=== PATIENT | female | born 1995 | race Caucasian/White ===

== ENCOUNTER → 2017-08-26 | Outpatient (CLI) | payer OTHER ==
[2017-08-26 17:11] LABS: HCT 42.7 % (34.0-46.0); HGB 14.1 gm/dL (11.4-16.0); MCH 30.1 pg (25.0-35.0); MCV 91.2 fL (80.0-100.0); Mean Platelet Volume 7.9; Platelet Count 272 k/uL (150-450); RBC 4.68 m/uL (3.80-5.40); WBC 6.6 k/uL (3.8-10.6)
== END | disposition home or self-care (01) ==
LOC: LABPAT 16:26
PROVIDERS: ATTEND Obstetrics & Gynecology
DX: Z01.812 Encounter for preprocedural laboratory examination (principal)
CPT/HCPCS: 36415; 85027

== ENCOUNTER 2017-09-02 10:57 | Day surgery (SDC) | payer OTHER ==
[2017-08-30 12:20] VITALS: BMI 28.3
--- NOTE | 2017-09-02 08:11 | P.HPOB ---
History of Present Illness H&P Date: 09/02/17 Chief Complaint: irreg bleeding and cramping 22 year old G0 presents for D&C hysteroscopy. She has had some heavy periods with cramping along with dyspareunia. US showed an endocervical polyp. Review of Systems All systems: negative Constitutional: Denies chills, Denies fever Eyes: denies blurred vision, denies pain Ears, nose, mouth and throat: Denies headache, Denies sore throat Cardiovascular: Denies chest pain, Denies shortness of breath Respiratory: Denies cough Gastrointestinal: Denies abdominal pain, Denies diarrhea, Denies nausea, Denies vomiting Genitourinary: Denies dysuria, Denies hematuria Musculoskeletal: Denies myalgias Integumentary: Denies pruritus, Denies rash Neurological: Denies numbness, Denies weakness Psychiatric: Denies anxiety, Denies depression Endocrine: Denies fatigue, Denies weight change Past Medical History Past Medical History: No Reported History Additional Past Medical History / Comment(s): EXTREME CRAMPING, PAIN W/ MENSES; HEAVY ALSO History of Any Multi-Drug Resistant Organisms: None Reported Past Surgical History: No Surgical Hx Reported Past Anesthesia/Blood Transfusion Reactions: Family History of Problems w/ Anesthesia, Motion Sickness Additional Past Anesthesia/Blood Transfusion Reaction / Comment(s): MOTHER, GRANDMOTHER - "TAKES LONG TIME TO PUT UNDER ANESTHESIA." Smoking Status: Never smoker - Past Family History Father Additional Family Medical History / Comment(s): HX BLOOD CLOT, UNSURE OF TYPE Medications and Allergies Home Medications Medication Instructions Recorded Confirmed Type Bcp (Unsure Of Name) 1 tab PO HS 08/30/17 History Cetirizine HCl [Zyrtec] 10 mg PO DAILY 08/30/17 08/30/17 History Fluticasone Nasal [place] [Flonase 1 spr EA NOSTRIL BID 08/30/17 08/30/17 History Nasal [place]] Allergies Allergy/AdvReac Type Severity Reaction Status Date / Time erythromycin base Allergy Unknown Verified 08/30/17 11:59 Exam Osteopathic Statement: *. No significant issues noted on an osteopathic structural exam other than those noted in the History and Physical/Consult. HEart: RRR Lungs: CTAB Abdomen: soft, nontender Extremeties: neg cris's Assessment and Plan (1) Menorrhagia Status: Acute Code(s): N92.0 - EXCESSIVE AND FREQUENT MENSTRUATION WITH REGULAR CYCLE SNOMED Code(s): 418102090 (2) Dysmenorrhea Status: Acute Code(s): N94.6 - DYSMENORRHEA, UNSPECIFIED SNOMED Code(s): 041725549 (3) Endocervical polyp Status: Acute Code(s): N84.1 - POLYP OF CERVIX UTERI SNOMED Code(s): 0633314 Plan: 1. D&C hysteroscopy
[~2017-09-02 10:57] MED LIST: DEXAMETHASONE SOD PHOSPHATE 10 MG/ML 1 ML VIAL IV ONE; LACTATED RINGERS 1,000 ML IV SCH; MIDAZOLAM 2 MG/2 ML VIAL IV PRN; ONDANSETRON 4 MG/2 ML VIAL IVP ONE; Pre Op ABX Message 1 EACH MISC MISCELLANE ONE; SCOPOLAMINE 1.5MG/72HR PATCH TRANSDERM ONE
[2017-09-02 11:28] VITALS: TEMP 98.2
[2017-09-02] MEDS ORDERED: LIDOCAINE 1% 20 ML VIAL (10MG/ML) FOR IV START INTRADERMA ONE (11:40)
[2017-09-02] MEDS ORDERED: fentaNYL (PF) 50 MCG/ML 2 ML AMP ONE (11:58)
[2017-09-02] MEDS ORDERED: MIDAZOLAM 2 MG/2 ML VIAL ONE (11:58)
[2017-09-02] MEDS ORDERED: PROPOFOL 10 MG/ML 20 ML VIAL IV ONE (11:58)
[2017-09-02] MEDS ORDERED: LIDOCAINE 1% INJ 10MG/ML (20 ML MDV) ONE (11:58)
[2017-09-02] MEDS ORDERED: KETOROLAC 30 MG/ML 1 ML VIAL ONE (11:58)
--- NOTE | 2017-09-02 12:44 | P.OP ---
Date of Procedure: 09/02/17 Preoperative Diagnosis: 1. menorrhagia 2. dysmenorrhea 3. endocervical polyp Postoperative Diagnosis: same Procedure(s) Performed: D&C hysteroscopy Anesthesia: MAC Surgeon: Fatimah Paredes Estimated Blood Loss (ml): 10 IV fluids (ml): 500 Urine output (ml): 40 Pathology: other (endometrial currettings) Condition: stable Disposition: PACU Description of Procedure: Patient is taken the operating room where general anesthesia was obtained without difficulty. She is prepped and draped in normal sterile fashion dorsal lithotomy position, legs placed in the [employer] cane stirrups. Bladder was drained of all urine. Weighted speculum placed in the vagina the anterior lip of cervix was grasped With tenaculum. The uterus sounded to 7 cm and noted to be retroverted. Cervix is dilated to #8 Hegar dilator. Hysteroscopy was performed since the patient is on her period it is difficult to observe structures. Posterior are visualized however and there seems to be a smooth contour of the uterus. Sharp curet was used to obtain endometrial and endocervical curettings. All instruments removed from the vagina. Patient tolerated procedure well, sponge and instrument count correct 2. She was taken to recovery room in stable condition.
[2017-09-02] MEDS: fentaNYL (PF) 50 MCG/ML 2 ML AMP IV PRN ×2 (12:52→13:03)
[2017-09-02] MEDS ORDERED: LACTATED RINGERS 1,000 ML IV ONE (13:40)
[2017-09-02] MEDS ORDERED: HYDROcodone/APAP 5-325MG 1 EACH TAB PO ONE (14:13)
[2017-09-02 14:17] VITALS: RESP 18
[2017-09-02 14:19] VITALS: BP 110/70; PULSE 75
== END 2017-09-02 15:00 | disposition home or self-care (01) ==
LOC: OR 10:57
PROVIDERS: ATTEND Obstetrics & Gynecology
DX: N84.1 Polyp of cervix uteri (principal); N92.0 Excessive and frequent menstruation with regular cycle; N94.6 Dysmenorrhea, unspecified; Z79.3 Long term (current) use of hormonal contraceptives; Z79.51 Long term (current) use of inhaled steroids; Z79.899 Other long term (current) drug therapy; Z88.1 Allergy status to other antibiotic agents
CPT/HCPCS: 81025; 88305; 58558; J2250; J1100; J2405; J2001; J3010; J1885; J2704

== ENCOUNTER → 2019-12-06 | Outpatient (CLI) | payer OTHER ==
[2019-12-06 11:28] LABS: Basophils # (A) 0.1 k/uL (0-0.2); Basophils % (A) 1 %; Eosinophils # (A) 0.1 k/uL (0-0.7); Eosinophils % (A) 1 %; HCT 44.3 % (34.0-46.0); HGB 14.2 gm/dL (11.4-16.0); Lymphocytes # (A) 1.5 k/uL (1.0-4.8); Lymphocytes % (A) 34 %; MCHC 32.1 g/dL (31.0-37.0); MCV 93.2 fL (80.0-100.0); Mean Platelet Volume 7.5; Monocytes # (A) 0.2 k/uL (0-1.0); Monocytes % (A) 4 %; Neutrophils # (A) 2.6 k/uL (1.3-7.7); Neutrophils % (A) 57 %; Platelet Count 336 k/uL (150-450); RBC 4.75 m/uL (3.80-5.40); RDW 12.9 % (11.5-15.5); WBC 4.5 k/uL (3.8-10.6)
[2019-12-06 18:34] LABS: African American GFR (CKD) 138.6 (60.0-200.0); Albumin 4.6 g/dL (3.80-4.90); Albumin/Globulin Ratio 1.92 (1.60-3.17); Anion Gap 9.4 mmol/L (4.00-12.00); BUN/Creat Ratio 22.86 Ratio (12.00-20.00); C Reactive Protein 2.2 mg/dL (0.0-0.8); Calcium 9.9 mg/dL (8.7-10.3); Carbon Dioxide 25.6 mmol/L (21.6-31.8); Chol/HDL Ratio 2.71; Globulin 2.4 g/dL (1.6-3.3); LDL Cholesterol,Calculated 96.8 mg/dL (0.0-131.0); Non-African American GFR(CKD) 119.6 (60.0-200.0); Potassium 4.1 mmol/L (3.5-5.5); Total Bilirubin 0.5 mg/dL (0.3-1.2); VLDL Calculation 35.2 mg/dL (5.00-40.00)
[2019-12-06 19:36] LABS: Erythrocyte Sedimentation Rate 11 mm/Hr (0-20)
[2019-12-06 19:47] LABS: Hemoglobin A1C 4.9 % (4.0-6.0)
== END | disposition home or self-care (01) ==
LOC: LABWHC1 09:41
PROVIDERS: ATTEND Family Medicine
DX: Z00.00 Encounter for general adult medical examination without abnormal findings (principal)
CPT/HCPCS: 36415; 80053; 80061; 83036; 84443; 84681; 85025; 85652; 86140

== ENCOUNTER → 2020-01-01 | Outpatient (CLI) | payer OTHER | END | disposition home or self-care (01) | LOC: LABWHC1 11:24 | PROVIDERS: ATTEND Orthopaedic Surgery | DX: E55.9 Vitamin D deficiency, unspecified (principal) | CPT/HCPCS: 36415; 82306 ==

== ENCOUNTER 2020-10-16 22:28 | Emergency (ER) | payer BC, OTHER ==
[2020-10-16 22:32] VITALS: BP 116/70; PULSE 103
[2020-10-16 22:33] VITALS: TEMP 98
[2020-10-16] MEDS ORDERED: ONDANSETRON ODT 4 MG TAB PO STA (22:39)
[2020-10-16] MEDS ORDERED: IBUPROFEN 600 MG TAB PO STA (22:39)
[2020-10-16] MEDS ORDERED: MORPHINE SULFATE 4 MG/ML SYRINGE IM STA (22:39)
--- NOTE | 2020-10-16 23:16 | XR ---
EXAMINATION TYPE: XR ankle complete LT DATE OF EXAM: 10/16/2020 COMPARISON: NONE HISTORY: Pain TECHNIQUE: 3 view FINDINGS: There is soft tissue swelling over the lateral malleolus of the ankle. Ankle mortise is gisel tomic. I see no fracture. Joint spaces are normal. IMPRESSION: Soft tissue swelling. No fracture.
--- NOTE | 2020-10-16 23:17 | XR ---
EXAMINATION TYPE: XR tibia fibula LT DATE OF EXAM: 10/16/2020 COMPARISON: NONE HISTORY: Pain TECHNIQUE: 4 views FINDINGS: The knee joint is intact. Ankle mortise is anatomic. There is soft tissue swelling over the lateral malleolus of the ankle. There is no sign of knee joint effusion. IMPRESSION: Lateral soft tissue swelling at the ankle. No fracture seen.
--- NOTE | 2020-10-16 23:19 | ED ---
Lower Extremity Injury HPI - General Chief Complaint: Extremity Injury, Lower Stated Complaint: L Ankle Injury Time Seen by Provider: 10/16/20 22:34 Source: patient Mode of arrival: wheelchair - History of Present Illness Initial Comments: 25-year-old female patient presents to the emergency department today for evaluation of left ankle pain and swelling. Patient states about an hour prior to arrival she was coming down stairs when she tripped and landed wrong on her foot. States she is having significant swelling and pain to the left lateral aspect of the ankle. States she is having some tingling in her toes. Some discomfort up near her knee. She denies falling, hitting her head, or losing consciousness. Denies any other injuries or concerns. Has not taken anything for pain. Denies chance of . - Related Data Home Medications Medication Instructions Recorded Confirmed Bcp (Unsure Of Name) 1 tab PO HS 08/30/17 Cetirizine HCl [Zyrtec] 10 mg PO DAILY 08/30/17 08/30/17 Fluticasone Nasal [place] [Flonase 1 spr EA NOSTRIL BID 08/30/17 08/30/17 Nasal [place]] Previous Rx's Medication Instructions Recorded Ibuprofen [Motrin] 600 mg PO Q8HR PRN #30 tab 10/16/20 Allergies Allergy/AdvReac Type Severity Reaction Status Date / Time erythromycin base Allergy Unknown Verified 10/16/20 22:32 Review of Systems ROS Statement: Those systems with pertinent positive or pertinent negative responses have been documented in the HPI. ROS Other: All systems not noted in ROS Statement are negative. Past Medical History Past Medical History: No Reported History History of Any Multi-Drug Resistant Organisms: None Reported Past Surgical History: No Surgical Hx Reported Past Psychological History: No Psychological Hx Reported Smoking Status: Never smoker Past Alcohol Use History: None Reported Past Drug Use History: None Reported General Exam General appearance: alert, in no apparent distress, other (This is a well- developed, well-nourished adult female patient in no acute distress. Vital signs upon presentation are temperature 98.0F, pulse 103, respirations 21, blood pressure 116/70, pulse ox 97% on room air.) Respiratory exam: Present: normal lung sounds bilaterally. Absent: respiratory distress, wheezes, rales, rhonchi, stridor Cardiovascular Exam: Present: regular rate, normal rhythm, normal heart sounds. Absent: systolic murmur, diastolic murmur, rubs, gallop, clicks Extremities exam: Present: full ROM, normal capillary refill, other (Significant soft tissue swelling surrounding the left lateral malleolus. Skin is pink, warm, dry. Cap refill less than 3 seconds. Pedal and posttibial pulses are 2+ and equal bilaterally.). Absent: normal inspection, tenderness, pedal edema, joint swelling, calf tenderness Neurological exam: Present: alert, oriented X3, CN II-XII intact Psychiatric exam: Present: normal affect, normal mood Skin exam: Present: warm, dry, intact, normal color. Absent: rash Course Vital Signs 10/16/20 10/16/20 22:29 23:30 Temperature 98 F Pulse Rate 103 H Respiratory 21 18 Rate Blood Pressure 116/70 O2 Sat by Pulse 97 Oximetry Medical Decision Making - Medical Decision Making 25-year-old female patient presented to the emergency department today for evaluation of left ankle pain and swelling. Physical examination did reveal significant soft tissue swelling surrounding the left lateral malleolus. X-rays of the tib-fib and ankle were obtained and were negative for acute fracture. We did discuss pain as a cause for her symptoms. Discussed rest, ice, elevation she is given Kyaw wrap and ankle stirrup splint. She does have crutches in the car. She is instructed father primary care physician for recheck in 1 week if her symptoms are improved. Return parameters discussed in detail. She verbalizes understanding and agrees with this plan. My attending is Dr. Bellamy. - Radiology Data Radiology results: report reviewed, image reviewed Disposition Clinical Impression: Left ankle sprain Disposition: HOME SELF-CARE Condition: Good Instructions (If sedation given, give patient instructions): Ankle Sprain (ED) Additional Instructions: Use Kyaw wrap for compression and support. Air splint for alignment. Rest, ice, elevate the ankle. Take Tylenol Motrin for pain control. Follow-up with the primary care physician in one week ago her symptoms are not improved. Return to the emergency department for any new, worsening, or concerning symptoms. Prescriptions: Ibuprofen [Motrin] 600 mg PO Q8HR PRN #30 tab PRN Reason: Pain Is patient prescribed a controlled substance at d/c from ED?: No Referrals: Danny Dukes MD [Primary Care Provider] - 1-2 days Time of Disposition: 23:19
[2020-10-16] MEDS ORDERED: ACET/COD 300 MG/30 MG STARTER PACK 6 TAB BTL PO STA (23:25)
[2020-10-16 23:39] VITALS: RESP 18
== END 2020-10-16 23:30 | disposition home or self-care (01) ==
LOC: EC 22:28
DX: S93.402A Sprain of unspecified ligament of left ankle, initial encounter (principal); W10.9XXA Fall (on) (from) unspecified stairs and steps, initial encounter
CPT/HCPCS: 73590; 73610; 96372; 99283; 29515; J2270

== ENCOUNTER 2021-09-21 03:10 | Emergency (ER) | payer BC, OTHER ==
[2021-09-21 03:17] VITALS: BP 130/82; PULSE 87; RESP 18; TEMP 97.4
--- NOTE | 2021-09-21 03:24 | ED ---
Female Urogenital HPI - General Chief complaint: Abdominal Pain Stated complaint: 19 Weeks, Abdominal Pain and cramping Time Seen by Provider: 09/21/21 03:17 Source: patient, RN notes reviewed, old records reviewed Mode of arrival: ambulatory Limitations: no limitations - History of Present Illness Initial comments: This is a 26-year-old female to the emergency departmen for evaluation. She presents today for bowel pain and . Patient states she is 19 weeks' by formal ultrasound. Patient is having left-sided abdominal pain Rating from her groin up into her left flank. Patient's pain is crampy in nature woke her from sleep a few hours ago and has been persistent. She has no nausea or vomiting. No recent fevers normal bowel movement yesterday and no dysuria. MD Complaint: pelvic pain -: hour(s) Location: LLQ Radiation: LLQ Severity: mild Severity scale (1-10): 2 Quality: cramping Consistency: intermittent Improves with: none Worsens with: none Last Menstrual Period: 05/10/21 Patient : Yes Associated Symptoms: abdominal pain - Related Data Sexually active: No Home Medications Medication Instructions Recorded Confirmed Bcp (Unsure Of Name) 1 tab PO HS 08/30/17 Cetirizine HCl [Zyrtec] 10 mg PO DAILY 08/30/17 08/30/17 Fluticasone Nasal [place] [Flonase 1 spr EA NOSTRIL BID 08/30/17 08/30/17 Nasal [place]] Previous Rx's Medication Instructions Recorded Ibuprofen [Motrin] 600 mg PO Q8HR PRN #30 tab 10/16/20 Allergies Allergy/AdvReac Type Severity Reaction Status Date / Time erythromycin base Allergy Unknown Verified 09/21/21 03:17 Review of Systems ROS Statement: Those systems with pertinent positive or pertinent negative responses have been documented in the HPI. ROS Other: All systems not noted in ROS Statement are negative. Past Medical History Past Medical History: No Reported History History of Any Multi-Drug Resistant Organisms: None Reported Past Surgical History: No Surgical Hx Reported Additional Past Surgical History / Comment(s): left arm. d and c for polyps Past Psychological History: No Psychological Hx Reported Smoking Status: Never smoker Past Alcohol Use History: None Reported Past Drug Use History: None Reported General Exam General appearance: alert, in no apparent distress Head exam: Present: atraumatic, normocephalic, normal inspection Eye exam: Present: normal appearance, PERRL, EOMI. Absent: scleral icterus, conjunctival injection, periorbital swelling ENT exam: Present: normal exam, mucous membranes moist Neck exam: Present: normal inspection. Absent: tenderness, meningismus, lymphadenopathy Respiratory exam: Present: normal lung sounds bilaterally. Absent: respiratory distress, wheezes, rales, rhonchi, stridor Cardiovascular Exam: Present: regular rate, normal rhythm, normal heart sounds. Absent: systolic murmur, diastolic murmur, rubs, gallop, clicks GI/Abdominal exam: Present: soft, normal bowel sounds. Absent: distended, tenderness, guarding, rebound, rigid Extremities exam: Present: normal inspection, full ROM, normal capillary refill. Absent: tenderness, pedal edema, joint swelling, calf tenderness Back exam: Present: normal inspection Neurological exam: Present: alert, oriented X3, CN II-XII intact Psychiatric exam: Present: normal affect, normal mood Skin exam: Present: warm, dry, intact, normal color. Absent: rash Course Vital Signs 09/21/21 03:11 Temperature 97.4 F L Pulse Rate 87 Respiratory 18 Rate Blood Pressure 130/82 O2 Sat by Pulse 97 Oximetry - Reevaluation(s) Reevaluation #1: 09/21/21 03:45 Medical record is reviewed Reevaluation #2: 09/21/21 03:45 Patient has no real change in symptoms here in the ER Reevaluation #3: 09/21/21 03:59 Patient informed of results and questions answered Medical Decision Making - Medical Decision Making 26 female to the emergency department with nonspecific abdominal pain. Will take a [id number] approach. Urinalysis negative for acute disease. Patient is positive heart tones. Patient can be discharged home - Lab Data Lab Results 09/21/21 Range/Units 03:29 Urine Color Light Yellow Urine Appearance Clear (Clear) Urine pH 6.5 (5.0-8.0) Ur Specific [place] 1.012 (1.001-1.035) Urine Protein Negative (Negative) Urine Glucose (UA) Negative (Negative) Urine Ketones Negative (Negative) Urine Blood Negative (Negative) Urine Nitrite Negative (Negative) Urine Bilirubin Negative (Negative) Urine Urobilinogen <2.0 (<2.0) mg/dL Ur Leukocyte Esterase Negative (Negative) Disposition Clinical Impression: Abdominal pain Disposition: HOME SELF-CARE Condition: Good Instructions (If sedation given, give patient instructions): Abdominal Pain in (ED) Is patient prescribed a controlled substance at d/c from ED?: No Referrals: Danny Dukes MD [Primary Care Provider] - 1-2 days Time of Disposition: 03:55
[2021-09-21] MEDS ORDERED: ACETAMINOPHEN TAB 500 MG TAB PO STA (03:40)
[2021-09-21 03:53] LABS: Appearance,Urine Clear (Clear); Bilirubin,Urine Negative (Negative); Blood,Urine Negative (Negative); Color,Urine Light Yellow; Glucose,Urine (UA) Negative (Negative); Ketones,Urine Negative (Negative); Leukocyte Esterase,Urine Negative (Negative); Nitrite,Urine Negative (Negative); PH, Urine 6.5 (5.0-8.0); Protein,Urine Negative (Negative); Specific Gravity,Urine 1.012 (1.001-1.035); Urobilinogen,Urine <2.0 mg/dL (<2.0)
== END 2021-09-21 04:04 | disposition home or self-care (01) ==
LOC: EC 03:10
DX: O26.892 Other specified pregnancy related conditions, second trimester (principal); R10.9 Unspecified abdominal pain; Z88.1 Allergy status to other antibiotic agents; Z3A.19 19 weeks gestation of pregnancy
CPT/HCPCS: 81003

== ENCOUNTER → 2021-12-11 | Outpatient (CLI) | payer BC, OTHER | END | disposition home or self-care (01) | LOC: LABWHC1 09:23 | PROVIDERS: ATTEND Obstetrics & Gynecology | DX: Z36.9 Encounter for antenatal screening, unspecified (principal) | CPT/HCPCS: 36415; 82950; 86850; 86870; 86880 ==

== ENCOUNTER 2021-12-15 11:13 | Outpatient (CLI) | payer BC, OTHER ==
[2021-12-15 11:33] LABS: Glucose,Whole Blood 126 mg/dL (70-110)
[2021-12-15 12:23] LABS: Appearance,Urine Cloudy (Clear); Bacteria,Urine Occasional /hpf; Bilirubin,Urine Negative (Negative); Blood,Urine Negative (Negative); Color,Urine Yellow; Glucose,Urine (UA) Negative (Negative); Ketones,Urine Negative (Negative); Leukocyte Esterase,Urine Trace (Negative); Mucus,Urine Occasional /hpf; Nitrite,Urine Negative (Negative); PH, Urine 6.5 (5.0-8.0); Protein,Urine 1+ (Negative); RBC,Urine 3 /hpf (0-5); Specific Gravity,Urine 1.024 (1.001-1.035); Squamous Epithelial Cell,Urine 15 /hpf (0-4); Urobilinogen,Urine <2.0 mg/dL (<2.0); WBC,Urine 11 /hpf (0-5)
[2021-12-15] MEDS ORDERED: ONDANSETRON 4 MG TAB PO PRN (12:27)
[2021-12-15 12:39] VITALS: BP 120/76; PULSE 95; RESP 16; TEMP 97.9
--- NOTE | 2021-12-31 20:12 | P.MSEPDOC ---
Presenting Problems - Arrival Data Date of Arrival on Unit: 12/15/21 Time of Arrival on Unit: 11:13 Mode of Transport: Ambulatory - Complaint OB-Reason for Admission/Chief Complaint: Acute Nausea/Vomiting Medical History - Information : 1 Para: 0 Term: 0 : 0 Abortions: Spontaneous or Elective: 0 Number of Living Children: 0 - Gestational Age Gestational Age by CONCHA (wks/days): 31 Weeks and 2 Days Review of Systems - Review of Systems Constitutional: No problems Breast: No problems ENT: No problems Cardiovascular: No problems Respiratory: No problems Gastrointestinal: No problems Genitourinary: No problems Musculoskeletal: No problems Neurological: No problems Skin: No problems Vital Signs - Temperature Temperature: 97.9 F Temperature Source: Temporal Artery Scan - Pulse Right Sitting Pulse Rate: 95 Pulse Assessment Method: Automatic Cuff - Respirations Respiratory Rate: 16 Oxygen Delivery Method: Room Air - Blood Pressure Right Arm Blood Pressure: 120/76 Blood Pressure Mean: 90 Blood Pressure Source: Automatic Cuff Medical Screen Scoring - Assessment - Baby A Baseline FHR: 145 Heart Rate - NICHD Category: Category I (Normal) NST: Reactive Physician Notification - Physician Notified Physician Notified Date: 12/15/21 Physician Notified Time: 14:01 Physician: Nilsa Moon New Order Received: Yes (d/c home) Maternal Triage Index - Non-Urgent/Priority 4 Non-Urgent Priority 4: Yes Criteria Met for Priority 4: nausea, vomiting, abd pain and cramping x 3 days Disposition - Disposition OB Disposition: Discharge to home Discharge Date: 12/15/21 Discharge Time: 14:07 I agree with the RN Medical Screening Exam: Yes Physician's MSE Comment: I have neither seen nor examined the patient. Case reviewed; plan agreed upon as documented in EMR&OBIX.: Yes Diagnosis: RELATED CONDITIONS, UNSPECIFIED, THIRD TRIMESTER
== END 2021-12-15 14:07 | disposition home or self-care (01) ==
LOC: FBPOP 11:13
PROVIDERS: ATTEND Obstetrics & Gynecology
DX: O21.2 Late vomiting of pregnancy (principal); Z3A.31 31 weeks gestation of pregnancy; Z88.1 Allergy status to other antibiotic agents
CPT/HCPCS: 59025; 81001; 99213

== ENCOUNTER 2022-02-11 19:44 | Inpatient (IN) | payer BC, OTHER ==
[2022-02-11] MEDS ORDERED: OXYTOCIN 10 UNIT/ML 1 ML VIAL IM PRN (20:24)
[2022-02-11] MEDS ORDERED: LIDOCAINE 0.5% (PF) 5 MG/ML (50 ML SDV) SQ PRN (20:24)
[2022-02-11] MEDS ORDERED: TERBUTALINE 1 MG/ML VIAL SQ PRN (20:24)
[2022-02-11] MEDS ORDERED: CARBOPROST TROMETHAMINE 250 MCG/ML 1 ML AMP IM PRN (20:24)
[2022-02-11] MEDS ORDERED: METHYLERGONOVINE 0.2 MG/ML 1 ML AMP IM PRN (20:24)
[2022-02-11] MEDS: LACTATED RINGERS 1,000 ML IV SCH ×2 (20:42→22:27)
--- NOTE | 2022-02-11 20:51 | P.HPOB ---
History of Present Illness H&P Date: 02/11/22 Chief Complaint: Spontaneous rupture of membranes at 39-4/7 weeks This is a 26-year-old 1 para 0 woman with an estimated due date of 02/14/2022 who presents at 39-4/7 weeks' gestation with spontaneous rupture of membranes. She reports increasing contraction activity throughout the last several hours and then had a gush of fluid had approximately 6 PM. She presented to labor and delivery triage at which time gross rupture of membranes was confirmed and she had a positive amnio sure test. The fluid was noted to be thick meconium stained. She is 1 cm dilated and is irregularly fernanda. She's had an uncomplicated otherwise. Laboratory data: Blood type O-, antibody screen negative, rubella immune, VDRL nonreactive, hepatitis B surface antigen negative, gonorrhea and clinically cultures negative, HIV negative, glucose tolerance testing 3 hour within normal limits, group B strep negative. Review of Systems All systems: negative Past Medical History Past Medical History: No Reported History History of Any Multi-Drug Resistant Organisms: None Reported Past Surgical History: No Surgical Hx Reported Additional Past Surgical History / Comment(s): left arm. d and c for polyps Smoking Status: Never smoker Medications and Allergies Home Medications Medication Instructions Recorded Confirmed Type Esomeprazole Magnesium [NexIUM] 1 tab PO DAILY 12/15/21 12/15/21 History Vit No.179/Iron/Folic 1 tab PO DAILY 12/15/21 12/15/21 History [ Tablet] Allergies Allergy/AdvReac Type Severity Reaction Status Date / Time erythromycin base Allergy Unknown Verified 12/15/21 11:48 Exam Intake and Output 02/11/22 02/11/22 02/11/22 06:59 14:59 22:59 Other: Weight 98.883 kg This is a visibly gravid comfortable appearing female. Targeted physical exam is performed. Cervix is 1 cm dilated 50% effaced and the vertex in the -3 station. Thick meconium-stained fluid is noted. heart tones are currently category 1 with positive accelerations. There is evidence of 2 or 3 variable appearing heart rate decelerations however no repetitive late appearing decelerations. She is fernanda very irregularly. Assessment and Plan (1) 39 weeks gestation of Current Visit: Yes Status: Acute Code(s): Z3A.39 - 39 WEEKS GESTATION OF SNOMED Code(s): 82567837 (2) Spontaneous rupture of membranes Current Visit: Yes Status: Acute Code(s): AMO0922 - SNOMED Code(s): 533362953 (3) Spontaneous onset of labor Current Visit: Yes Status: Acute Code(s): UCB7270 - SNOMED Code(s): 26307174 (4) Meconium in amniotic fluid Current Visit: Yes Status: Acute Code(s): P96.83 - MECONIUM STAINING SNOMED Code(s): 4799568 (5) Rh negative, maternal Current Visit: Yes Status: Acute Code(s): O26.899 - OTH RELATED CONDITIONS, UNSPECIFIED TRIMESTER; Z67.91 - UNSPECIFIED BLOOD TYPE, RH NEGATIVE SNOMED Code(s): 821776387 Plan: 26-year-old 1 para 0 woman at 39-4/7 weeks' gestation with spontaneous rupture of membranes in early active labor. Meconium-stained fluid is noted. This findings discussed with the patient and her in close monitoring will be undertaken. Pitocin augmentation as indicated for labor. She may have an epidural anesthetic in active labor. heart tones are currently category 1.
[2022-02-11 21:08] LABS: Basophils # (A) 0.1 k/uL (0-0.2); Basophils % (A) 0 %; Eosinophils % (A) 0 %; HCT 41.2 % (34.0-46.0); HGB 14.6 gm/dL (11.4-16.0); Lymphocytes % (A) 15 %; MCH 31.9 pg (25.0-35.0); MCHC 35.5 g/dL (31.0-37.0); MCV 89.8 fL (80.0-100.0); Mean Platelet Volume 9.3; Monocytes # (A) 0.5 k/uL (0-1.0); Monocytes % (A) 4 %; Neutrophils # (A) 10.3 k/uL (1.3-7.7); Neutrophils % (A) 78 %; Platelet Count 219 k/uL (150-450); RBC 4.59 m/uL (3.80-5.40); RDW 13.2 % (11.5-15.5); WBC 13.1 k/uL (3.8-10.6)
[2022-02-11] MEDS ORDERED: fentaNYL (PF) 50 MCG/ML 5 ML AMP ONE (21:39)
[2022-02-11] MEDS ORDERED: SODIUM CHLORIDE 0.9% 100 ML BAG ONE (21:39)
[2022-02-11] MEDS ORDERED: ROPIVACAINE 5 MG/ML 20 ML AMPULE ONE (21:39)
[2022-02-12] MEDS ORDERED: BUTORPHANOL 1 MG/ML 1 ML VIAL IV PRN (00:03)
[2022-02-12] MEDS ORDERED: BENZOCAINE/MENTHOL SPRAY 1 GM/SPRAY AEROSOL TOPICAL PRN (01:36)
[2022-02-12] MEDS ORDERED: HYDROCORTISONE 2.5% RECTAL CREAM 30 GM TUBE RECTAL PRN (01:36)
[2022-02-12] MEDS ORDERED: LANOLIN CREAM 5 GM TUBE TOPICAL PRN (01:36)
[2022-02-12] MEDS ORDERED: diphenhydrAMINE 25 MG CAP PO PRN (01:36)
[2022-02-12] MEDS ORDERED: SIMETHICONE 80 MG CHEWABLE PO PRN (01:36)
[2022-02-12] MEDS ORDERED: diphenhydrAMINE 50 MG/ML 1 ML VIAL IVP PRN ×2 (01:36)
[2022-02-12] MEDS ORDERED: ZOLPIDEM 5 MG TAB PO PRN (01:36)
[2022-02-12] MEDS ORDERED: diphenhydrAMINE 50 MG CAP PO PRN (01:36)
--- NOTE | 2022-02-12 01:36 | P.PROBDLV ---
Vaginal Delivery Note - . Vaginal Delivery Note: Findings: Female in the left occiput anterior position with nuchal cord 1. Apgars of 9 at 1 minute and 9 at 5 minutes weighing 6 lbs. 13 oz., 3110 g. Second-degree midline episiotomy. Calcified and disrupted placenta with meconium staining noted. Three-vessel cord. EBL 350 mL's. Delivery summary: This is a 26-year-old 1 para 0 woman who presented at 39-4/7 weeks' gestation with spontaneous rupture of membranes and early active labor. She was found to have thick meconium-stained fluid. When she presented she was 1 cm dilated however, actively fernanda every 1-3 minutes. She progressed to 2 cm dilated and was significantly uncomfortable therefore an epidural anesthetic was placed. She did not obtain adequate pain control however did have a root have a rapid progression to complete cervical dilation after a 6 hour first stage of labor. She reached complete cervical dilation and commenced pushing with strong maternal effort. She did push to and had a very tight perineum. This was infused with lidocaine and a midline episiotomy was delivered. With additional maternal effort and support of the perineum the head did deliver with the next contraction. The rest of the delivered rapidly onto the field. There was thick meconium stained fluid noted terminally. The nose and mouth were bulb suctioned. There was a nuchal cord that was delivered through. The infant was placed on the maternal abdomen and eventually the cord was clamped and cut. Apgars were 9 at 1 minute and 9 at 5 minutes and weight was 6 lbs. 13 oz. She had an approximately 20 minute third stage of labor at which time calcified and meconium-stained placenta was expressed. Inspection revealed an area with possible disruption of the cotyledon. By manual exploration of the low uterine segment did not reveal any retained placenta and the uterus was firm. She did receive Pitocin following the third stage of labor. On well awaiting the placental delivery the second degree perineal laceration had been infused with lidocaine and repaired with 3-0 Vicryl suture in the usual fashion. The vagina and cervix were reinspected and no further lacerations were noted. EBL was approximately 350 mL's for the entire event. Both mother and were rest resting comfortably post delivery in the room.
[2022-02-12] MEDS ORDERED: OXYTOCIN 30 UNITS/500 ML NS 30 UNIT in SALINE 1 500ML.BAG IV SCH (01:45)
[2022-02-12] MEDS: IBUPROFEN 600 MG TAB PO PRN ×4 (02:05→20:48)
[2022-02-12] MEDS: SENNOSIDES-DOCUSATE SODIUM 1 EACH TAB PO SCH ×2 (09:23→20:48)
[2022-02-12] MEDS: ACETAMINOPHEN TAB 325 MG TAB PO PRN (12:42)
[2022-02-12] MEDS: LACTATED RINGERS 1,000 ML IV SCH ×2 (21:00→22:22)
[2022-02-13 07:44] LABS: Basophils # (A) 0.1 k/uL (0-0.2); Basophils % (A) 0 %; Eosinophils # (A) 0.1 k/uL (0-0.7); Eosinophils % (A) 1 %; HCT 37.3 % (34.0-46.0); HGB 12.7 gm/dL (11.4-16.0); Lymphocytes % (A) 22 %; MCH 32.1 pg (25.0-35.0); MCHC 34.2 g/dL (31.0-37.0); Mean Platelet Volume 9.4; Monocytes # (A) 0.5 k/uL (0-1.0); Monocytes % (A) 4 %; Neutrophils # (A) 9.8 k/uL (1.3-7.7); Neutrophils % (A) 72 %; Platelet Count 205 k/uL (150-450); RBC 3.97 m/uL (3.80-5.40); RDW 13.2 % (11.5-15.5); WBC 13.6 k/uL (3.8-10.6)
[2022-02-13] MEDS: SENNOSIDES-DOCUSATE SODIUM 1 EACH TAB PO SCH ×2 (08:25→20:24)
[2022-02-13] MEDS: IBUPROFEN 600 MG TAB PO PRN ×2 (08:25→16:28)
[2022-02-13] MEDS: ACETAMINOPHEN TAB 325 MG TAB PO PRN ×2 (11:47→20:25)
--- NOTE | 2022-02-13 12:11 | P.PNOBGVD ---
Subjective - Subjective Principal diagnosis: day #1 status post normal spontaneous vaginal delivery Interval history: Patient is doing well . She is ambulating and voiding without difficulty. She is tolerating a regular diet without nausea or vomiting. Her is under bili lights currently Patient reports: Reports appetite normal, Reports voiding normally, Reports pain well controlled, Reports ambulating normally : doing well Objective - Latest Vital Signs Latest vital signs: Vital Signs Temp Pulse Pulse Resp BP Pulse Ox 02/13/22 08:00 98.3 F 97 16 135/89 02/13/22 00:00 97.9 F 85 16 127/85 97 02/12/22 20:00 97.9 F 87 16 127/85 97 02/12/22 16:00 97.7 F 93 16 113/71 Intake and Output 02/12/22 02/13/22 02/13/22 22:59 06:59 14:59 Other: # Voids 2 2 2 - Exam Extremities: Present: normal, edema Abdomen: Present: normal appearance Uterus: Present: normal, firm - Labs Labs: Abnormal Lab Results - Last 24 Hours (Table) 02/13/22 Range/Units 06:13 WBC 13.6 H (3.8-10.6) k/uL Neutrophils # 9.8 H (1.3-7.7) k/uL Assessment and Plan (1) Status post normal vaginal delivery Current Visit: Yes Status: Acute Code(s): [id number] - SNOMED Code(s): 186446900 (2) 39 weeks gestation of Current Visit: Yes Status: Acute Code(s): Z3A.39 - 39 WEEKS GESTATION OF SNOMED Code(s): 38283730 (3) Meconium in amniotic fluid Current Visit: Yes Status: Acute Code(s): P96.83 - MECONIUM STAINING SNOMED Code(s): 8772435 (4) Rh negative, maternal Current Visit: Yes Status: Acute Code(s): O26.899 - OTH RELATED CONDITIONS, UNSPECIFIED TRIMESTER; Z67.91 - UNSPECIFIED BLOOD TYPE, RH NEGATIVE SNOMED Code(s): 201718602 (5) Spontaneous onset of labor Current Visit: Yes Status: Acute Code(s): KGV8532 - SNOMED Code(s): 30907648 (6) Spontaneous rupture of membranes Current Visit: Yes Status: Acute Code(s): HCU5563 - SNOMED Code(s): 471020436 Plan: 26-year-old status post normal spontaneous vaginal delivery. Patient is doing well . Plan to continue routine care and anticipate discharge home tomorrow with .
[2022-02-14] MEDS: IBUPROFEN 600 MG TAB PO PRN ×3 (00:33→16:46)
[2022-02-14] MEDS: ACETAMINOPHEN TAB 325 MG TAB PO PRN (05:19)
[2022-02-14] MEDS: SENNOSIDES-DOCUSATE SODIUM 1 EACH TAB PO SCH (09:31)
--- NOTE | 2022-02-14 10:05 | P.DS ---
Providers Date of admission: 02/11/22 20:01 Expected date of discharge: 02/14/22 Attending physician: Lobo Ramirez Primary care physician: Stated None - Discharge Diagnosis(es) (1) Status post normal vaginal delivery Current Visit: Yes Status: Acute (2) 39 weeks gestation of Current Visit: Yes Status: Acute (3) Meconium in amniotic fluid Current Visit: Yes Status: Acute (4) Rh negative, maternal Current Visit: Yes Status: Acute (5) Spontaneous onset of labor Current Visit: Yes Status: Acute (6) Spontaneous rupture of membranes Current Visit: Yes Status: Acute Hospital Course: This is a 18-year-old G1 now P1 presented to labor and delivery at 39-4/7 weeks with spontaneous rupture of membranes in early active labor. Patient had been receiving routine care for full details on this patient please see the dictated history and physical. Patient was noted to have thick meconium-stained fluid upon presentation and 1 cm. Patient made slow progress but was significantly uncomfortable therefore epidural was placed when she was 2 cm. Patient then had rapid progression to complete dilation after a six-hour first stage of labor. Patient reached complete cervical dilation and began pushing. She had a normal spent taste vaginal delivery of a viable female infant weight 6 lbs. 13 oz., she did have a second-degree vaginal laceration repaired in usual fashion with 3-0 Vicryl. patient's course has been uneventful. On this day #2 she is ambulating and voiding without difficulty. She is tolerating a regular diet without nausea or vomiting. She states her pain is well-controlled. Discharge instructions are reviewed. Patient Condition at Discharge: Good Plan - Discharge Summary New Discharge Prescriptions: No Action Esomeprazole Magnesium [NexIUM] 1 tab PO DAILY Vit No.179/Iron/Folic [ Tablet] 1 tab PO DAILY Discharge Medication List Esomeprazole Magnesium [NexIUM] 1 tab PO DAILY 12/15/21 [History] Vit No.179/Iron/Folic [ Tablet] 1 tab PO DAILY 12/15/21 [History] Follow up Appointment(s)/Referral(s): Lobo Ramirez MD [STAFF PHYSICIAN] - 6 Weeks Patient Instructions/Handouts: Vaginal Delivery (DC), Vaginal Delivery (GEN) Activity/Diet/Wound Care/Special Instructions: Patient is counseled nothing in the vagina, no intercourse or tub baths until 6 weeks . She is counseled on [id number] pain control, ibuprofen 6 her milligrams as needed for pain. Should she have any concerns prior to her 6 week check she is urged to call the office. Discharge Disposition: HOME SELF-CARE
[2022-02-14 17:15] VITALS: BP 141/87; PULSE 80; RESP 18; TEMP 98.3
== END 2022-02-14 19:35 | disposition home or self-care (01) | DRG 807 ==
LOC: FBPOP 19:44 → 4FBP 20:01
PROVIDERS: ADMIT Obstetrics & Gynecology; ATTEND Obstetrics & Gynecology
PROC: 10E0XZZ Delivery of Products of Conception, External Approach (ICD-10-PCS; principal; 2022-02-12)
PROC: 0KQM0ZZ Repair Perineum Muscle, Open Approach (ICD-10-PCS; 2022-02-12)
PROC: 4A0HXCZ Measurement of Products of Conception, Cardiac Rate, External Approach (ICD-10-PCS; 2022-02-12)
PROC: 3E033VJ Introduction of Other Hormone into Peripheral Vein, Percutaneous Approach (ICD-10-PCS; 2022-02-12)
DX: O42.92 Full-term premature rupture of membranes, unspecified as to length of time between rupture and onset of labor (principal); Z37.0 Single live birth; O70.1 Second degree perineal laceration during delivery; O76 Abnormality in fetal heart rate and rhythm complicating labor and delivery; O26.893 Other specified pregnancy related conditions, third trimester; O69.81X0 Labor and delivery complicated by cord around neck, without compression, not applicable or unspecified; O77.0 Labor and delivery complicated by meconium in amniotic fluid; Z3A.39 39 weeks gestation of pregnancy; Z88.1 Allergy status to other antibiotic agents; Z67.41 Type O blood, Rh negative
CPT/HCPCS: 59025; 84112; 85025; 86850; 86900; 86901; 99213

== ENCOUNTER 2023-09-16 17:58 | Emergency (ER) | payer BC, OTHER ==
--- NOTE | 2023-09-16 18:55 | ED ---
Abdominal Pain HPI - General Source: patient, RN notes reviewed Mode of arrival: ambulatory Limitations: no limitations <Jenny Crowley - Last Filed: 09/16/23 18:53> <Ted Parry - Last Filed: 09/17/23 04:20> - General Chief Complaint: Abdominal Pain Stated Complaint: complications Time Seen by Provider: 09/16/23 18:53 - History of Present Illness Initial Comments: Quick [id number] female at approximately 5 weeks gestation presenting to the ER with pelvic pain radiating to the back. She states she was sent by urgent care due to concerns for possible ectopic or ruptured ovarian c yst. Denies vaginal bleeding. (Jenny Crowley) 28-year-old female presenting with chief complaint of pelvic pain. Patient had a positive at-home test, LMP was around 4/15. She states that she was feeling some pain in her back on the left side and some comfort in the right- sided pelvic region. She assumed that she was getting a UTI so she went to urgent care. They prompted her to report to the ER to rule out ectopic . She is having no vaginal bleeding. Her pain is mild. She is having no dysuria, hematuria, urgency, frequency, fevers. No nausea or vomiting. No diarrhea. (Ted Parry) - Related Data Home Medications Medication Instructions Recorded Confirmed Esomeprazole Magnesium [NexIUM] 1 tab PO DAILY 12/15/21 02/12/22 Vit No.179/Iron/Folic 1 tab PO DAILY 12/15/21 02/12/22 [ Tablet] Allergies Allergy/AdvReac Type Severity Reaction Status Date / Time erythromycin base Allergy Unknown Verified 09/16/23 18:27 Review of Systems ROS Other: All systems not noted in ROS Statement are negative. <Jenny Crowley - Last Filed: 09/16/23 18:53> ROS Other: All systems not noted in ROS Statement are negative. <Ted Parry - Last Filed: 09/17/23 04:20> ROS Statement: Those systems with pertinent positive or pertinent negative responses have been documented in the HPI. Past Medical History Past Medical History: No Reported History History of Any Multi-Drug Resistant Organisms: None Reported Past Surgical History: No Surgical Hx Reported Additional Past Surgical History / Comment(s): left arm. d and c for polyps Past Psychological History: No Psychological Hx Reported Smoking Status: Vaper Past Alcohol Use History: Occasional Past Drug Use History: None Reported <Jenny Crowley - Last Filed: 09/16/23 18:53> General Exam Limitations: no limitations <Jenny Crowley - Last Filed: 09/16/23 18:53> Limitations: no limitations General appearance: alert, in no apparent distress Head exam: Present: atraumatic, normocephalic Eye exam: Present: normal appearance, EOMI Neck exam: Present: normal inspection Respiratory exam: Absent: respiratory distress Cardiovascular Exam: Present: regular rate GI/Abdominal exam: Absent: distended Neurological exam: Present: alert, oriented X3 Psychiatric exam: Present: normal affect, normal mood Skin exam: Present: normal color <Ted Parry - Last Filed: 09/17/23 04:20> - General Exam Comments Initial Comments: Visual Physical Exam Vital signs reviewed General: Well-appearing, nontoxic, no acute distress. Head: Normocephalic, atraumatic Eyes: PERRLA, EOMI ENT: Airway patent Chest: Nonlabored breathing Skin: No visual rash, normal skin tone Neuro: Alert and oriented 3 Musculoskeletal: No gross abnormalities (Jenny Crowley) Course Vital Signs 09/16/23 09/16/23 09/16/23 18:23 22:29 23:57 Temperature 98.4 F 98.5 F Pulse Rate 90 59 L 76 Respiratory 18 17 18 Rate Blood Pressure 117/69 118/87 117/98 O2 Sat by Pulse 97 98 97 Oximetry Medical Decision Making <Jenny Crowley - Last Filed: 09/16/23 18:53> - Lab Data Result diagrams: 09/16/23 18:51 09/16/23 18:51 <Ted Parry - Last Filed: 09/17/23 04:20> - Medical Decision Making I completed the quick note portion of this chart signed Jenny Crowley PA-C (Jenny Crowley) Was pt. sent in by a medical professional or institution (ISHAN Valdez, GEOLOGY PROFESSOR, urgent care, hospital, or group home...) When possible be specific @ -No Did you speak to anyone other than the patient for history (EMS, parent, family, police, friend...)? What history was obtained from this source @ -No Did you review nursing and triage notes (agree or disagree)? Why? @ -I reviewed and agree with nursing and triage notes Were old charts reviewed (outside hosp., previous admission, EMS record, old EKG, old radiological studies, urgent care reports/EKG's, group home records)? Report findings @ -No old charts were reviewed Differential Diagnosis (chest pain, altered mental status, abdominal pain women, abdominal pain men, vaginal bleeding, weakness, fever, dyspnea, syncope, headache, dizziness, GI bleed, back pain, seizure, CVA, palpatations, mental health, musculoskeletal)? @ -Differential includes UTI, kidney stone, pyelonephritis, ectopic , ovarian cyst, this is not an all-inclusive list EKG interpreted by me (3pts min.). @ -As above X-rays interpreted by me (1pt min.). @ -None done CT interpreted by me (1pt min.). @ -None done U/S interpreted by me (1pt. min.). @ -Ultrasound shows no evidence of intrauterine gestational sac, correlate with beta-hCG. If positive this could represent early , ectopic , or spontaneous . Follow-up pelvic ultrasound in 5 to 7 days and serial beta hCG studies have recommended What testing was considered but not performed or refused? (CT, X-rays, U/S, labs)? Why? @ -None What meds were considered but not given or refused? Why? @ -None Did you discuss the management of the patient with other professionals (professionals i.e. , PA, GEOLOGY PROFESSOR, lab, RT, psych nurse, mental health social worker, fire crew specialist, teacher, sustainability officer, case making machine operator)? Give summary @ -No Was smoking cessation discussed for >3mins.? @ -No Was critical care preformed (if so, how long)? @ -No Were there social determinants of health that impacted care today? How? (Homelessness, low income, unemployed, alcoholism, drug addiction, transportation, low edu. Level, literacy, decrease access to med. care, snf, rehab)? @ -No Was there de-escalation of care discussed even if they declined (Discuss DNR or withdrawal of care, Hospice)? DNR status @ -No What co-morbidities impacted this encounter? (DM, HTN, Smoking, COPD, CAD, Cancer, CVA, ARF, Chemo, Hep., AIDS, mental health diagnosis, sleep apnea, morbid obesity)? @ -None Was patient admitted / discharged? Hospital course, mention meds given and route, prescriptions, significant lab abnormalities, going to OR and other p ertinent info. @ -28-year-old female presenting with chief complaint of some pelvic discomfort. She had a positive at-home test. LMP was around July 31. Workup initiated by triage. Lab work shows no leukocytosis or anemia. hCG 23.8. Urine shows no infectious process or bleeding. Ultrasound shows no intrauterine gestational sac. On reassessment the patient is resting comfortably showing no acute signs of distress. She is educated on today's findings. She is provided with an order for repeat beta-hCG in 48 hours. This will be forwarded to her PALEOLOGIST Dr. Ramirez. Discharged home. Follow-up with PCP. Report back to ER with any new or worsening symptoms. Discussed return parameters and answered all questions. Patient conveyed verbal understanding and agreed to the plan. I discussed this case in detail with my attending Dr. Bellamy Undiagnosed new problem with uncertain prognosis? @ -No Drug Therapy requiring intensive monitoring for toxicity (Heparin, Nitro, I nsulin, Cardizem)? @ -No Were any procedures done? @ -No Diagnosis/symptom? @ -Threatened Acute, or Chronic, or Acute on Chronic? @ -Acute Uncomplicated (without systemic symptoms) or Complicated (systemic symptoms)? @ -Uncomplicated Side effects of treatment? @ -No Exacerbation, Progression, or Severe Exacerbation? @ -No Poses a threat to life or bodily function? How? (Chest pain, USA, VT, pneumonia, PE, COPD, DKA, ARF, appy, cholecystitis, CVA, Diverticulitis, Homicidal, Suicid al, threat to staff... and all critical care pts) @ -Unlikely (Ted Parry) - Lab Data Lab Results 09/16/23 09/16/23 09/16/23 Range/Units 18:51 18:51 18:51 WBC 9.8 (3.8-10.6) k/uL RBC 4.98 (3.80-5.40) m/uL Hgb 15.2 (11.4-16.0) gm/dL Hct 45.7 (34.0-46.0) % MCV 91.8 (80.0-100.0) fL MCH 30.5 (25.0-35.0) pg MCHC 33.2 (31.0-37.0) g/dL RDW 12.3 (11.5-15.5) % Plt Count 238 (150-450) k/uL MPV 8.3 Neutrophils % 60 % Lymphocytes % 33 % Monocytes % 4 % Eosinophils % 1 % Basophils % 1 % Neutrophils # 5.9 (1.3-7.7) k/uL Lymphocytes # 3.2 (1.0-4.8) k/uL Monocytes # 0.4 (0-1.0) k/uL Eosinophils # 0.1 (0-0.7) k/uL Basophils # 0.1 (0-0.2) k/uL PT 10.5 (10.0-12.5) sec INR 1.0 (<1.2) APTT 27.6 (22.0-30.0) sec Sodium 137 (137-145) mmol/L Potassium 3.8 (3.5-5.1) mmol/L Chloride 104 (98-107) mmol/L Carbon Dioxide 21 L (22-30) mmol/L Anion Gap 12 mmol/L BUN 14 (7-17) mg/dL Creatinine 0.70 (0.52-1.04) mg/dL Est GFR (CKD-EPI)AfAm >90 (>60 ml/min/1.73 sqM) Est GFR (CKD-EPI)NonAf >90 (>60 ml/min/1.73 sqM) Glucose 79 (74-99) mg/dL Plasma Lactic Acid Jayden (0.7-2.0) mmol/L Calcium 9.8 (8.4-10.2) mg/dL Total Bilirubin 0.9 (0.2-1.3) mg/dL AST 22 (14-36) U/L ALT 19 (4-34) U/L Alkaline Phosphatase 76 (38-126) U/L Total Protein 8.1 (6.3-8.2) g/dL Albumin 5.0 (3.5-5.0) g/dL Lipase 94 (23-300) U/L HCG, Quant 23.8 mIU/mL Urine Color Urine Appearance (Clear) Urine pH (5.0-8.0) Ur Specific Sidney (1.001-1.035) Urine Protein (Negative) Urine Glucose (UA) (Negative) Urine Ketones (Negative) Urine Blood (Negative) Urine Nitrite (Negative) Urine Bilirubin (Negative) Urine Urobilinogen (<2.0) mg/dL Ur Leukocyte Esterase (Negative) 09/16/23 09/16/23 Range/Units 18:51 22:57 WBC (3.8-10.6) k/uL RBC (3.80-5.40) m/uL Hgb (11.4-16.0) gm/dL Hct (34.0-46.0) % MCV (80.0-100.0) fL MCH (25.0-35.0) pg MCHC (31.0-37.0) g/dL RDW (11.5-15.5) % Plt Count (150-450) k/uL MPV Neutrophils % % Lymphocytes % % Monocytes % % Eosinophils % % Basophils % % Neutrophils # (1.3-7.7) k/uL Lymphocytes # (1.0-4.8) k/uL Monocytes # (0-1.0) k/uL Eosinophils # (0-0.7) k/uL Basophils # (0-0.2) k/uL PT (10.0-12.5) sec INR (<1.2) APTT (22.0-30.0) sec Sodium (137-145) mmol/L Potassium (3.5-5.1) mmol/L Chloride (98-107) mmol/L Carbon Dioxide (22-30) mmol/L Anion Gap mmol/L BUN (7-17) mg/dL Creatinine (0.52-1.04) mg/dL Est GFR (CKD-EPI)AfAm (>60 ml/min/1.73 sqM) Est GFR (CKD-EPI)NonAf (>60 ml/min/1.73 sqM) Glucose (74-99) mg/dL Plasma Lactic Acid Jayden 0.8 (0.7-2.0) mmol/L Calcium (8.4-10.2) mg/dL Total Bilirubin (0.2-1.3) mg/dL AST (14-36) U/L ALT (4-34) U/L Alkaline Phosphatase (38-126) U/L Total Protein (6.3-8.2) g/dL Albumin (3.5-5.0) g/dL Lipase (23-300) U/L HCG, Quant mIU/mL Urine Color Yellow Urine Appearance Clear (Clear) Urine pH 5.5 (5.0-8.0) Ur Specific Sidney 1.023 (1.001-1.035) Urine Protein Negative (Negative) Urine Glucose (UA) Negative (Negative) Urine Ketones 1+ H (Negative) Urine Blood Negative (Negative) Urine Nitrite Negative (Negative) Urine Bilirubin Negative (Negative) Urine Urobilinogen <2.0 (<2.0) mg/dL Ur Leukocyte Esterase Negative (Negative) Disposition <Jenny Crowley - Last Filed: 09/16/23 18:53> Is patient prescribed a controlled substance at d/c from ED?: No Time of Disposition: 23:54 <Ted Parry - Last Filed: 09/17/23 04:20> Clinical Impression: Threatened miscarriage Disposition: HOME SELF-CARE Condition: Good Instructions (If sedation given, give patient instructions): Threatened Miscarriage (ED) Additional Instructions: Follow-up with PALEOLOGIST. Report back to ER with any new or worsening symptoms. Obtain repeat beta-hCG in 48 hours Referrals: None,Stated [Primary Care Provider] - 1-2 days Lobo Ramirez MD [STAFF PHYSICIAN] - 1-2 days
--- NOTE | 2023-09-16 21:46 | US ---
EXAMINATION TYPE: Transabdominal DATE OF EXAM: 09/16/2023 8:22 PM COMPARISON: NONE CLINICAL INDICATION: Female, 28 years old with history of pelvic pain; pain EXAM PERFORMED: Transabdominal (TA) EXAM MEASUREMENTS: GESTATIONAL AGE / DATING Physician Established: Not yet established Dates by LMP: 08/15/2023 (4 weeks/4 days) EDC: 05/21/2024 Dates by First Scan: No previous this is first scan Dates by Current Scan for: No IUP seen at this t digna MATERNAL ANATOMY Uterus: 6.5 x 5.1 x 6.5 cm Right Ovary: 2.5 x 1.8 x 2.36 cm Left Ovary: 2.5 x 3.1 x 2.3 cm Post CDS / Adnexa: wnl Presence of free fluid: no Presence of corpus luteal cyst: yes left Presence of subchorionic bleed: no GESTATION / SURVEY IUP: No IUP seen at this time Beta HcG (if available): Not available at this time IMPRESSION: 1. No evidence of intrauterine gestational sac, correlate with B-hCG. If positive, this could represe nt early , ectopic or spontaneous . Follow up pelvic ultrasound in 5-7 day s and serial beta hCG studies are recommended.
[2023-09-16 22:29] LABS: Basophils # (A) 0.1 k/uL (0-0.2); Basophils % (A) 1 %; Eosinophils # (A) 0.1 k/uL (0-0.7); Eosinophils % (A) 1 %; HCT 45.7 % (34.0-46.0); HGB 15.2 gm/dL (11.4-16.0); Lymphocytes # (A) 3.2 k/uL (1.0-4.8); Lymphocytes % (A) 33 %; MCH 30.5 pg (25.0-35.0); MCHC 33.2 g/dL (31.0-37.0); MCV 91.8 fL (80.0-100.0); Mean Platelet Volume 8.3; Monocytes # (A) 0.4 k/uL (0-1.0); Monocytes % (A) 4 %; Neutrophils # (A) 5.9 k/uL (1.3-7.7); Neutrophils % (A) 60 %; Platelet Count 238 k/uL (150-450); RBC 4.98 m/uL (3.80-5.40); RDW 12.3 % (11.5-15.5); WBC 9.8 k/uL (3.8-10.6)
[2023-09-16 22:38] LABS: ALT 19 U/L (4-34); AST 22 U/L (14-36); African American GFR (CKD) >90 (>60 ml/min/1.73 sqM); Alkaline Phosphatase 76 U/L (38-126); Anion Gap 12 mmol/L; Blood Urea Nitrogen 14 mg/dL (7-17); Calcium 9.8 mg/dL (8.4-10.2); Carbon Dioxide 21 mmol/L (22-30); Chloride 104 mmol/L (98-107); Glucose 79 mg/dL (74-99); Lipase 94 U/L (23-300); Non-African American GFR(CKD) >90 (>60 ml/min/1.73 sqM); Potassium 3.8 mmol/L (3.5-5.1); Sodium 137 mmol/L (137-145); Total Bilirubin 0.9 mg/dL (0.2-1.3); Total Protein 8.1 g/dL (6.3-8.2)
[2023-09-16 22:45] LABS: Partial Thromboplastin Time 27.6 sec (22.0-30.0); Prothrombin Time 10.5 sec (10.0-12.5)
[2023-09-16 22:55] LABS: HCG,Quantitative Serum 23.8 mIU/mL
[2023-09-16 23:29] LABS: Appearance,Urine Clear (Clear); Bilirubin,Urine Negative (Negative); Blood,Urine Negative (Negative); Color,Urine Yellow; Glucose,Urine (UA) Negative (Negative); Ketones,Urine 1+ (Negative); Leukocyte Esterase,Urine Negative (Negative); Nitrite,Urine Negative (Negative); PH, Urine 5.5 (5.0-8.0); Protein,Urine Negative (Negative); Specific Gravity,Urine 1.023 (1.001-1.035); Urobilinogen,Urine <2.0 mg/dL (<2.0)
[2023-09-17 00:21] VITALS: BP 117/98; PULSE 76; RESP 18; TEMP 98.5
== END 2023-09-17 00:05 | disposition home or self-care (01) ==
LOC: EC 17:58
DX: O20.0 Threatened abortion (principal); Z3A.01 Less than 8 weeks gestation of pregnancy
CPT/HCPCS: 36415; 76801; 80053; 81003; 83605; 83690; 84702; 85025; 85610; 85730; 99284

== ENCOUNTER → 2023-09-19 | Outpatient (CLI) | payer BC | END | disposition home or self-care (01) | LOC: LABWHC1 13:33 | PROVIDERS: ATTEND Physician Assistant | DX: O20.0 Threatened abortion (principal); Z3A.00 Weeks of gestation of pregnancy not specified | CPT/HCPCS: 36415; 84702 ==

== ENCOUNTER → 2023-09-21 | Outpatient (CLI) | payer BC | END | disposition home or self-care (01) | LOC: LABWHC1 14:01 | PROVIDERS: ATTEND Obstetrics & Gynecology | DX: O02.0 Blighted ovum and nonhydatidiform mole (principal) | CPT/HCPCS: 36415; 84702 ==

== ENCOUNTER 2023-12-07 12:15 | Emergency (ER) | payer BC, OTHER ==
[2023-12-07] MEDS ORDERED: ONDANSETRON 4 MG/2 ML VIAL ONE (13:02)
[2023-12-07] MEDS ORDERED: SODIUM CHLORIDE 0.9% 1,000 ML BAG ONE (13:40)
[2023-12-07] MEDS ORDERED: ACETAMINOPHEN IV (For NPO) 1,000 MG/100 ML VIAL ONE (14:44)
[2023-12-07] MEDS ORDERED: PANTOPRAZOLE 40 MG/10 ML VIAL ONE (15:17)
[2023-12-07] MEDS ORDERED: FAMOTIDINE 20 MG/2 ML VIAL ONE (15:17)
--- NOTE | 2024-01-04 15:13 | US ---
EXAMINATION TYPE: US OB >= 14 wk fetus DATE OF EXAM: 12/07/2023 COMPARISON: 11 CLINICAL INDICATION: Unknown, old with history of ; Reason: abdominal pain in HX: ; d&c 7 yrs ago; CONCHA 05/28/24, RUQ/epigastric pain x 1 day with N/V. CONCHA: 05/28/24 GA: 15w2d Cerv length: 3.28cm EVELYN: 13.22cm HR: 140bpm BPD: 16w1d HC: 16w1d AC: 16w0d FL: 15w3d Todays exam: 16w0d CONCHA: 05/23/24 Weight: 133g (0lb 5oz) Placenta wnl IMPRESSION: Single viable intrauterine .
--- NOTE | 2024-01-04 15:14 | US ---
Patient: Mildred Marin Ordering Physician: Unknown, Unknown ID: [id number] Phone, Pager: Phone: N/ A Pager: N/A : 1995 Age/Gender: 28Y, N/A Primary Location: N/A Procedure: US Abdomen Limited S rojas Date: 12/07/2023 1:19:00 PM EXAMINATION TYPE: US abdomen limited DATE OF EXAM: 12/07/2023 COMPARISON: NONE CLINICAL INDICATION: Unknown, old with history of ; TECHNIQUE: Multiple sonographic images of the right upper quadrant are obtained. FINDINGS: Reason: Abdominal pain in Tech Impression: Pancreas: WNL Liver: 17.2cm GB: WNL; fold noted GB Wall: 0.2cm CBD: 0.2cm Right Kidney: 11.6 x 4.3 x 4.1cm IMPRESSION: No significant canal is appreciated.
== END 2023-12-07 17:33 | disposition home or self-care (01) ==
LOC: EC 12:15
CPT/HCPCS: 76705; 76805; 86850; 86900; 86901; 99284

== ENCOUNTER 2024-02-19 19:37 | Outpatient (CLI) | payer BC, OTHER ==
[2024-02-19 21:23] VITALS: BP 135/62; PULSE 68; RESP 16; TEMP 96.4
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
== END 2024-02-19 21:10 | disposition home or self-care (01) ==
LOC: FBPOP 19:37
PROVIDERS: ATTEND Obstetrics & Gynecology Obstetrics
DX: O26.92 Pregnancy related conditions, unspecified, second trimester (principal); G89.11 Acute pain due to trauma; Z3A.25 25 weeks gestation of pregnancy; Z88.1 Allergy status to other antibiotic agents
CPT/HCPCS: 99215

== ENCOUNTER 2024-05-21 05:55 | Outpatient (CLI) | payer BC, OTHER ==
[2024-05-21] MEDS ORDERED: ONDANSETRON 4 MG TAB PO PRN (07:18)
[2024-05-21] MEDS: ONDANSETRON ODT 4 MG TAB PO STA (07:27)
== END 2024-05-21 07:30 | disposition home or self-care (01) ==
LOC: FBPOP 05:55
PROVIDERS: ATTEND Obstetrics & Gynecology
DX: Z53.9 Procedure and treatment not carried out, unspecified reason (principal)
CPT/HCPCS: 59025; 99213